=== PATIENT | female | born 1965 | race Asian ===

== ENCOUNTER 2024-05-02 19:17 | Emergency (ER) | payer OTHER ==
[~2024-05-02] VITALS: Ht 165.1 cm; Wt 75.0 kg
[2024-05-02 19:18] VITALS: O2SAT 97
[2024-05-02 19:27] VITALS: BP 136/87; PULSE 103; RESP 18; TEMP 36.7; O2SAT 98
[2024-05-02] MEDS: METOCLOPRAMIDE HCL 10MG/2ML VIAL IV ONE (21:25)
[2024-05-02 22:31] LABS: BASOPHILS % 0.5 % (0.0-2.0); EOSINOPHILS % 0.6 % (0.0-5.0); HEMATOCRIT. 45.4 % (36.0-48.0); HEMOGLOBIN. 14.9 g/dL (12.0-16.0); LYMPHOCYTES % 18.6 % (20.0-50.0); MEAN CORPUSCULAR HEMOGLOBIN 28.2 pg (28.0-32.0); MEAN CORPUSCULAR HGB CONC 32.8 g/dL (31.0-37.0); MEAN CORPUSCULAR VOLUME 86.1 fL (81.0-99.0); MEAN PLATELET VOLUME 9.6 fl (7.4-10.4); MONOCYTES % 5.7 % (2.0-8.0); NEUTROPHILS % 74.6 % (40.0-76.0); PLATELET 235 x1000/uL (130-400); RED BLOOD CELL COUNT 5.27 mill/uL (4.2-5.4); RED CELL DISTRIBUTION WIDTH 14.5 % (11.6-14.6); WHITE BLOOD COUNT 7.8 x1000/uL (4.5-11.0)
[2024-05-02 22:34] LABS: CHLORIDE 106 mEq/L (98-107); SODIUM 142 mEq/L (136-145)
[2024-05-02 22:35] LABS: CARBON DIOXIDE 26 mEq/L (21-32)
[2024-05-02 22:36] LABS: CALCIUM 10.2 mg/dL (8.7-10.4)
[2024-05-02 22:40] LABS: CREATININE 0.7 mg/dL (0.6-1.0); GLUCOSE 107 mg/dL (70-105); UREA NITROGEN BLOOD 13 mg/dL (9-23)
[2024-05-02 22:48] LABS: INR 0.9; PROTHROMBIN TIME 10.2 sec (9.6-11.0)
[2024-05-02 22:51] LABS: TROPONIN I HIGH SENSITIVITY < 4 ng/L (3.0-34)
[2024-05-03] MEDS: IOHEXOL-350 100 ML BOTTLE ONE (03:02)
== END 2024-05-03 03:10 | disposition home or self-care (01) ==
LOC: ER 19:17
DX: G43.909 Migraine, unspecified, not intractable, without status migrainosus (principal); H11.31 Conjunctival hemorrhage, right eye; I10 Essential (primary) hypertension; E78.5 Hyperlipidemia, unspecified; E11.9 Type 2 diabetes mellitus without complications; Z98.890 Other specified postprocedural states
CPT/HCPCS: 80048; 85025; 85610; 86850; 86900; 86901; 84484; 36415; 93005; 96374; 99285; 70496; 70498; J2765; Z7610 ×3; Q9967